=== PATIENT | male | born 1975 | race Caucasian/White ===

== ENCOUNTER 2019-11-16 19:55 | Emergency (ER) | payer BC ==
[~2019-11-16] VITALS: Ht 175.3 cm; Wt 90.7 kg
[2019-11-16] MEDS ORDERED: Prednisone20 MG PO (21:49)
[2019-11-16] MEDS ORDERED: GUAIFENESIN-CODE5 ML PO (21:49)
== END 2019-11-16 22:14 | disposition home or self-care (01) ==
LOC: ER 19:55
DX: R05 Cough (principal)
CPT/HCPCS: 71046; 99283-25; J7512